=== PATIENT | female | born 1965 | race American Indian/Alaskan Native ===

== ENCOUNTER 2019-01-14 06:26 | Emergency (ER) | payer MEDICARE ==
[2019-01-14 06:41] VITALS: BP 120/83
--- NOTE | 2019-01-14 07:35 | Emergency Department Report ---
ED ENT HPI - General Chief complaint: Dental/Oral Stated complaint: TOOTHACHE Time Seen by Provider: 01/14/19 07:22 Source: patient Mode of arrival: Ambulatory Limitations: No Limitations - History of Present Illness Initial comments: Patient is a 53-year-old female who presents to emergency room with complaints of left upper and left lower dental pain that began a month ago. she states approximately a month ago she saw a dentist and needs to have 8 teeth pulled. Patient denies any fever, facial swelling. Patient is tolerating by mouth intake without any difficulty. pt is also presenting to the emergency room with complaints of left eye redness began last night. Patient states she has had mucous drainage, crusting and matting of the eyelashes. She denies any vision changes. She denies any contact lens use. She denies getting anything into the eye. Past medical history of HTN, COPD, GERD. She denies any allergies to medications. - Related Data Previous Rx's Medication Instructions Recorded Last Taken Type Acetaminophen/Codeine [Tylenol 1 tab PO Q6H PRN #7 tab 01/14/19 Unknown Rx /Codeine # 3 tab] Erythromycin [Erythromycin Ophth 1 applic OP QID 7 Days #1 tube 01/14/19 Unknown Rx Oint] Ibuprofen [Motrin 800 MG tab] 800 mg PO Q8HR PRN #14 tablet 01/14/19 Unknown Rx Penicillin Vk [Veetids TAB] 500 mg PO QID 7 Days #56 tablet 01/14/19 Unknown Rx Allergies Allergy/AdvReac Type Severity Reaction Status Date / Time No Known Allergies Allergy Unverified 01/14/19 06:41 ED Dental HPI - General Chief complaint: Dental/Oral Stated complaint: TOOTHACHE Time Seen by Provider: 01/14/19 07:22 Source: patient Mode of arrival: Ambulatory Limitations: No Limitations - Related Data Previous Rx's Medication Instructions Recorded Last Taken Type Acetaminophen/Codeine [Tylenol 1 tab PO Q6H PRN #7 tab 01/14/19 Unknown Rx /Codeine # 3 tab] Erythromycin [Erythromycin Ophth 1 applic OP QID 7 Days #1 tube 01/14/19 Unknown Rx Oint] Ibuprofen [Motrin 800 MG tab] 800 mg PO Q8HR PRN #14 tablet 01/14/19 Unknown Rx Penicillin Vk [Veetids TAB] 500 mg PO QID 7 Days #56 tablet 01/14/19 Unknown Rx Allergies Allergy/AdvReac Type Severity Reaction Status Date / Time No Known Allergies Allergy Unverified 01/14/19 06:41 ED Review of Systems ROS: Stated complaint: TOOTHACHE Other details as noted in HPI Comment: All other systems reviewed and negative ED Past Medical Hx - Past Medical History Previous Medical History?: Yes Hx Hypertension: Yes Additional medical history: acid reflux - Surgical History Past Surgical History?: Yes Additional Surgical History: Left Knee replacement - Social History Smoking Status: Current Every Day Smoker Substance Use Type: None - Medications Home Medications: Home Medications Medication Instructions Recorded Confirmed Last Taken Type Acetaminophen/Codeine [Tylenol 1 tab PO Q6H PRN #7 tab 01/14/19 Unknown Rx /Codeine # 3 tab] Erythromycin [Erythromycin Ophth 1 applic OP QID 7 Days #1 tube 01/14/19 Unknown Rx Oint] Ibuprofen [Motrin 800 MG tab] 800 mg PO Q8HR PRN #14 tablet 01/14/19 Unknown Rx Penicillin Vk [Veetids TAB] 500 mg PO QID 7 Days #56 tablet 01/14/19 Unknown Rx ED Physical Exam - General Limitations: No Limitations General appearance: alert, in no apparent distress - Head Head exam: Present: atraumatic, normocephalic - Eye Eye exam: Present: normal appearance, PERRL, EOMI, conjunctival injection (left injection, no edema, no visible foreign body). Absent: periorbital swelling, periorbital tenderness - ENT ENT exam: Present: normal orophraynx, mucous membranes moist, other (very poor dentition, significant plaque buildup, dental caries throughout, no edema or fluctuance to the gum line, no uvular edema, uvula is midline) - Neurological Exam Neurological exam: Present: alert, oriented X3 - Psychiatric Psychiatric exam: Present: normal affect, normal mood - Skin Skin exam: Present: warm, dry, intact ED Course Vital Signs 01/14/19 06:40 Temperature 98.7 F Pulse Rate 82 Respiratory 18 Rate Blood Pressure 120/83 O2 Sat by Pulse 91 Oximetry ED Medical Decision Making - Medical Decision Making Patient is a 53-year-old female who presents to emergency room with complaints of left upper and left lower dental pain that began a month ago. she states approximately a month ago she saw a dentist and needs to have 8 teeth pulled. Patient denies any fever, facial swelling. Patient is tolerating by mouth intake without any difficulty. pt is also presenting to the emergency room with complaints of left eye redness began last night. Patient states she has had mucous drainage, crusting and matting of the eyelashes. She denies any vision changes. She denies any contact lens use. She denies getting anything into the eye. Past medical history of HTN, COPD, GERD. She denies any allergies to medications. vitals are normal. on exam: left sided conjunctival injection, PERRL, EOMI, no periorbital edema or pain. examination consistent with left sided conjunctivitis. dental exam:very poor dentition, significant plaque buildup, dental caries throughout, no edema or fluctuance to the gum line, no uvular edema, uvula is midline. no signs of dental abscess, pt tolerating secretions. pt given prescription for erythromycin ophthalmic ointment, penicillin VK, ibuprofen, short course of Tylenol with codeine. Advised patient to Please use medication as prescribed. Do not drive or operate machinery while taking pain medication. please avoid rubbing the eyes. wash hands thoroughly before and after using ophthalmic ointment. wash all bed sheets/pillow cases. Please wash your eyelids well. Follow up with a primary care doctor and dentist in the next 2-3 days. Given list of community resources. Return to the emergency room for any new or worsening symptoms. Discussed in detail with the patient the importance of following up with a dentist for permanent solution to her dental problem. Critical care attestation.: If time is entered above; I have spent that time in minutes in the direct care of this critically ill patient, excluding procedure time. ED Disposition Clinical Impression: Dental caries, Toothache Conjunctivitis Qualifiers: Conjunctivitis type: acute Acute conjunctivitis type: unspecified Laterality: left Qualified Code(s): H10.32 - Unspecified acute conjunctivitis, left eye Disposition: - TO HOME OR SELFCARE Is pt being admited?: No Does the pt Need Aspirin: No Condition: Stable Instructions: Dental Caries (ED), Conjunctivitis (ED), Toothache (ED) Additional Instructions: Please use medication as prescribed. Do not drive or operate machinery while taking pain medication. please avoid rubbing the eyes. wash hands thoroughly before and after using ophthalmic ointment. wash all bed sheets/pillow cases. Please wash your eyelids well. Follow up with a primary care doctor and dentist in the next 2-3 days. Given list of community resources. Return to the emergency room for any new or worsening symptoms. Prescriptions: Erythromycin [Erythromycin Ophth Oint] 1 applic OP QID 7 Days #1 tube Ibuprofen [Motrin 800 MG tab] 800 mg PO Q8HR PRN #14 tablet PRN Reason: Pain, Moderate (4-6) Acetaminophen/Codeine [Tylenol /Codeine # 3 tab] 1 tab PO Q6H PRN #7 tab PRN Reason: severe pain Penicillin Vk [Veetids TAB] 500 mg PO QID 7 Days #56 tablet Referrals: [facility] [Outside] - 2-3 Days [facility] [Outside] - 2-3 Days [facility] [Outside] - 2-3 Days Time of Disposition: 07:35 Print Language: CROATIAN
== END 2019-01-14 07:46 | disposition home or self-care (01) ==
LOC: ED 06:26
DX: K02.9 Dental caries, unspecified (principal); H10.32 Unspecified acute conjunctivitis, left eye; I10 Essential (primary) hypertension; K21.9 Gastro-esophageal reflux disease without esophagitis; F17.200 Nicotine dependence, unspecified, uncomplicated
CPT/HCPCS: 99282